=== PATIENT | female | born 2000 | race Caucasian/White ===

== ENCOUNTER 2019-08-11 09:13 | Emergency (ER) | payer BC ==
--- NOTE | 2019-08-11 09:32 | ED ---
Syncope/Near Syncope - HPI Summary HPI Summary: Patient is a 18-year-old female who presents emergency department for possible near syncopal episode and abdominal pain/cramping. Patient states around 0700 today she was the bathroom when she developed lower abdominal pain and cramping. Patient states she then started feeling dizzy, lightheaded and laid on the floor. Patient states she took Advil and pain eventually improved. Patient denies recent illness, cough, per history symptoms, vomiting, diarrhea, dysuria, vaginal discharge. Patient states she is to start her menstrual cycle soon and is on oral contraceptives. She otherwise denies past medical history. Denies family history of cardiac disease. Symptoms are moderate in severity. No current modifying factors. Pt. denies drug or ETOH use. - History Of Current Complaint Chief Complaint: EDDizziness Time Seen by Provider: 08/11/19 09:18 Hx Obtained From: Patient - Allergies/Home Medications Home Medications: Home Medications Apri Control 1 tab PO DAILY 08/11/19 [History Confirmed 08/11/19] PMH/Surg Hx/FS Hx/Imm Hx Previously Healthy: Yes Infectious Disease History: No Infectious Disease History: Denies: Traveled Outside the [place] in Last 30 Days - Family History Known Family History: Negative: Cardiac Disease - Social History Occupation: Student Lives: With Family Alcohol Use: None Substance Use Type: Reports: None Smoking Status (MU): Never Smoked Tobacco Review of Systems Constitutional: Negative Negative: Fever Eyes: Negative ENT: Negative Cardiovascular: Negative Negative: Palpitations, Chest Pain Respiratory: Negative Negative: Shortness Of Breath, Cough Positive: Abdominal Pain, Nausea. Negative: Vomiting, Diarrhea Genitourinary: Negative Negative: dysuria, discharge Musculoskeletal: Negative Skin: Negative Neurological: Other - near syncope All Other Systems Reviewed And Are Negative: Yes Physical Exam Triage Information Reviewed: Yes Vital Signs On Initial Exam: Initial Vitals Temp Pulse Resp BP Pulse Ox 98.8 F 44 16 103/59 100 08/11/19 09:19 08/11/19 09:19 08/11/19 09:19 08/11/19 09:19 08/11/19 09:19 Vital Signs Reviewed: Yes Appearance: Positive: Well-Appearing - Pt. sitting up in bed in NAD. Aunt present. Skin: Positive: Warm, Dry Head/Face: Positive: Normal Head/Face Inspection Eyes: Positive: Normal, EOMI, SAHIL ENT: Positive: Pharynx normal, TMs normal Neck: Positive: Supple Respiratory/Lung Sounds: Positive: Clear to Auscultation, Breath Sounds Present Cardiovascular: Positive: Normal, RRR Abdomen Description: Positive: Nontender, Soft Musculoskeletal: Positive: Normal, Strength/ROM Intact Neurological: Positive: Normal, CN Intact II-III Psychiatric: Positive: Affect/Mood Appropriate Procedures - Sedation Patient Received Moderate/Deep Sedation with Procedure: No Diagnostics - Vital Signs Vital Signs Temp Pulse Resp BP Pulse Ox 08/11/19 09:19 98.8 F 44 16 103/59 100 - Laboratory Result Diagrams: 08/11/19 10:02 08/11/19 10:02 Lab Statement: Any lab studies that have been ordered have been reviewed, and results considered in the medical decision making process. Course/Dx Course Of Treatment: Pt. presenting after what sounds like a near syncopal episode after experiencing lower abd. pain. Since in the ED pt. feeling back to baseline. She has a benign abd. exam without reproducible pain. Stable VS. Labs and ECG ordered. ECG done at 0953 shows a sinus bradycardia at 46bpm, normal axis, appropriate intervals, no ST changes. Labs are unremarkable. Attempt to obtain urine but pt. unable to provide a sample at tihs time. Pt. requesting to be dc home without U/A. Pt. feeling well and back to baseline. Suspect near syncopal episode. WIll have pt. f.u with [facility] in 2-3 days. To Return to er if sxs change or worsen. Pt. and family understand and agree with plan. - Diagnoses Differential Diagnosis/HQI/PQRI: Positive: Ectopic , Hypoglycemia, Hypovolemia, Seizure, Vasovagal Episode Provider Diagnoses: Vasovagal near-syncope, Abdominal pain Discharge ED - Sign-Out/Discharge Documenting (check all that apply): Patient Departure - Discharge Plan Condition: Improved Disposition: HOME Patient Education Materials: Near Syncope (ED) Referrals: [facility] - [facility]esh [Primary Care Provider] - Additional Instructions: Schedule a follow up appointment with [facility] within 1 week for recheck Increase fluids and rest Return to ER if symptoms change or worsen - Billing Disposition and Condition Condition: IMPROVED Disposition: Home
[2019-08-11 10:19] LABS: ABS Eosinophils 0.1 10^3/ul (0-0.6); ABS Lymphocytes 1.4 10^3/ul (1.0-4.8); ABS Monocytes 0.6 10^3/ul (0-0.8); ABS Neutrophils 7.3 10^3/ul (1.5-7.7); Hematocrit 40 % (35-47); Hemoglobin 13.2 g/dL (12.0-16.0); Mean Corpuscular HGB Conc 33 g/dL (31-36); Mean Corpuscular Hemoglobin 29 pg (27-31); Mean Corpuscular Volume 87 fL (80-97); Mean Platelet Volume 7.2 fL (7.4-10.4); Platelet Count 265 10^3/uL (150-450); Red Blood Count 4.55 10^6 /uL (3.70-4.87); Red Cell Distribution Width 13 % (10-15); White Blood Count 9.4 10^3/uL (3.5-10.8)
[2019-08-11 10:43] LABS: ALT 11 U/L (7-52); AST 13 U/L (13-39); Albumin 4.2 g/dL (3.2-5.2); Albumin/Globulin Ratio 1.6 (1-3); Alkaline Phosphatase 41 U/L (34-104); Anion Gap 6 mmol/L (2-11); BUN/Creatinine Ratio 15.6 (8-20); Blood Urea Nitrogen 14 mg/dL (6-24); CO2 Carbon Dioxide 25 mmol/L (22-32); Calcium 9.6 mg/dL (8.6-10.3); Chloride 109 mmol/L (101-111); EGFR African American 97.6 (>60); EGFR Non-African American 80.7 (>60); Globulin 2.6 g/dL (2-4); Glucose 92 mg/dL (70-100); Potassium 4.1 mmol/L (3.5-5.0); Sodium 140 mmol/L (135-145); Total Protein 6.8 g/dL (6.4-8.9)
[2019-08-11 10:49] LABS: HCG Pregnancy < 0.60 mIU/mL
[2019-08-11 11:43] VITALS: BP 91/61
== END 2019-08-11 11:43 | disposition home or self-care (01) ==
LOC: ED 09:13
DX: R55 Syncope and collapse (principal); R10.9 Unspecified abdominal pain
CPT/HCPCS: 36415; 80053; 84702; 85025; 93005; 99282